=== PATIENT | male | born 1940 | race African-American/Black ===

== ENCOUNTER 2018-06-16 06:37 | Emergency (ER) | payer MEDICARE, OTHER ==
[~2018-06-16] VITALS: Ht 175.3 cm; Wt 77.0 kg
[2018-06-16] MEDS ORDERED: EPINEPHrine 1:10,000 [1 MG/10 ML] SYRINGE IVP ONE (06:38)
[2018-06-16 06:39] VITALS: BP 112/100
[2018-06-16] MEDS ORDERED: ATOR10TA84 PO (07:33)
[2018-06-16] MEDS ORDERED: BUME1TAB17 PO (07:33)
[2018-06-16] MEDS ORDERED: CHOL50004 PO (07:33)
[2018-06-16] MEDS ORDERED: OMEP20 PO (07:33)
[2018-06-16] MEDS ORDERED: GABA-533 PO (07:33)
[2018-06-16] MEDS ORDERED: CYAN250010 PO (07:33)
[2018-06-16] MEDS ORDERED: POTA10TA PO (07:33)
== END 2018-06-16 09:51 | disposition expired ==
LOC: EMS 06:37
DX: I46.9 Cardiac arrest, cause unspecified (principal); I11.0 Hypertensive heart disease with heart failure; I50.9 Heart failure, unspecified; E78.00 Pure hypercholesterolemia, unspecified; Z85.038 Personal history of other malignant neoplasm of large intestine
CPT/HCPCS: 31500; 82962; 92950; 99291; J0171; 96365